=== PATIENT | female | born 1950 | race Caucasian/White ===

== ENCOUNTER → 2019-03-12 08:40 | Outpatient (CLI) | payer MEDICARE, OTHER, SELFPAY ==
[2019-03-12 10:33] LABS: Thyroid Stim Hormone (TSH) 2.35 uIU/mL (0.358-3.74)
== END ==
PROVIDERS: Referring Provider Dermatology; Visit Provider Dermatology
DX: L29.8 Other pruritus (principal); L21.8 Other seborrheic dermatitis; L20.89 Other atopic dermatitis; D23.71 Other benign neoplasm of skin of right lower limb, including hip
CPT/HCPCS: 36415; 84439; 84443

== ENCOUNTER 2021-05-06 11:18 | Day surgery (SDC) | payer MEDICARE, OTHER, SELFPAY ==
[2021-05-05 11:40] LABS: Hematocrit 39.8 % (37-47); Hemoglobin 12.9 g/dL (12.0-15.0); Mean Corp Hgb Conc 32.4 g/dL (32-36); Mean Corpuscular Hgb 31.7 pg (27.0-32.0); Mean Corpuscular Volume 97.8 fL (81-99); Mean Platelet Vol. 9.8 fl (6.2-12.0); Platelet Count 217 K/mm3 (150-450); RBC Distribution Width CV 13.2 % (11.6-14.6); RBC Distribution Width SD 47.2 fl (35.1-43.9); Red Blood Count 4.07 M/mm3 (4.2-5.4); White Blood Count 5.8 K/mm3 (4.4-11.0)
[2021-05-06] VITALS (7 sets, daily range): BP systolic 126–161; BP diastolic 62–69; PULSE 72–100; RESP 12–18; TEMP 36.1–37.1; O2SAT 97–100; BMI 30.3
[2021-05-06] MEDS: Lactated Ringers 1,000 ML 15 ML IV (12:12)
--- NOTE | 2021-05-06 12:49 | PCM.HP.BLA ---
History and Physical Date of Admission: 05/06/21 Surgical History and Physical Date: 05/06/2021 Name: CARMEN PIZARRO Age: 70 Date of : 1950 Carmen Pizarro, a 70 year old female 2 0 0 0 2 -- Carmen is here for Labiaplasty scheduled for 05/06/21. Consents reviewed and signed. MEDICATIONS HISTORY: Patient is also takin. potassium chloride ER 10 mEq tablet,extended release, One pill by mouth once a day ALLERGIES: Penicillins, Swelling-throat, Sulfa (Sulfonamide Antibiotics), Hives and/or rash, Inderal [place] and Migraine Infections - chicken pox, pneumonia Illnesses - HTN, GERD, micturition, hyperlipidemia, osteopenia Accidents - none Hospitalizations - see surgery Review of Systems: GENERAL - Denies fever, or chills SKIN - Denies skin changes EYES - Denies visual changes EARS - Denies difficulty hearing NOSE - Denies nasal congestion or bleeding MOUTH - Denies sore throat or difficulty swallowing NECK - Denies pain or swelling RESPIRATORY - Denies shortness of breath or wheezing CARDIOVASCULAR - Denies palpitations or chest pain GASTROINTESTINAL - Denies nausea, vomiting, diarrhea, constipation GENITOURINARY - Denies dysuria, frequency of urination, incontinence of urine MUSCULOSKELETAL - Denies joint or muscle pain NEUROLOGICAL - Denies localized numbness or weakness PSYCHIATRIC - Denies depression or anxiety ENDOCRINE - Denies heat or cold intolerance, weight loss or gain HEMATO-IMMUNOLOGIC - Denies excessive bleeding with cuts SOCIAL HISTORY: Alcohol Use - denies drinking Smoking - denies smoking Diet - balanced Diet Lifestyle - Exercise - none Seat Belt Use - always Employer - Retired Illicit Drug Use - denies use of street drugs Sexual Activity - Residence - owns a home Spouse-Sig Other Name - Joe Spouse-Sig Other Occupation - retired Children Name(s) - 2 children Control - hysterectomy FAMILY HISTORY: MENSTRUAL HISTORY: LMP Known?- Prior Hysterectomy PAST PREGNANCIES: Total Pregnancies - 2; Full Term Pregnancies - 2; Premature - 0; Abortions, Induced - 0; Abortions, Spontaneous - 0; Ectopics - 0; Multiple Births - 0; Living Children - 2 SURGICAL HISTORY: 1. vaginal hysterectomy 1981 ; - 2. L shoulder surgery 2006 ; - 3. sinus surgery 2014 ; - 4. b/l lasix eye surgery ; - 5. suspension of uterus 1977 ; - 6. L breast lumpectomy 1995 ; - 7. resection of the L ovary 1977 ; - 8. appendectomy 1977 ; - PHYSICAL EXAM BP- 158/92 Sitting, Right arm, regular cuff Weight- 156.47897 lbs Height- 60.00 inch BMI:[id number] CONSTITUTIONAL - NAD, well nourished, and well developed SKIN - No rash, lesions, or ulcers HEENT - Normocephalic, PERRLA, EOMI NECK - No nodes, no nuchal rigidity and thyroid normal size and texture LYMPH NODES - Palpation of lymph nodes in neck and groins within normal limits EXTREMITIES - No edema or calf tenderness NEUROLOGICAL - Cranial nerves II-XII grossly intact PSYCHIATRIC - A and O to time, place, person, mood and affect External Genital Vagina - Labia fused from introitus to just below urethra. Urethra visible Urethra/Urethral Meatus - non-tender ASSESSMENT/PLAN: 1. Fusion Of Labia Patient arrives as referral from Dr. Lira, who was seeing her for difficulty voiding. Noted on exam to have labial fusion by Dr. Lira Patient has had difficulty voiding, sits on toilet and dribbles with no heavy stream for about 3 months. Never noticed that she had any vaginal/vulvar issues Exam reveals labial fusion from introitus up to just below the urethra. Palpation of the vaginal canal cannot be performed with fusion For labioplasty 2. Encounter For Other Preprocedural Examination Patient with labial fusion with difficulty voiding. Scheduled for labioplasty Risk benefits alternatives discussed. All questions answered and consent was signed Discussed postoperative pain and wound recovery Follow-up 2 weeks postoperatively
--- NOTE | 2021-05-06 13:58 | PCM.DC ---
Discharge Instructions Diet Discharge Diet: No restrictions Activity Discharge Activity: Return to Normal Activity, May Drive and May Shower May resume sexual activity in: 4-6 weeks Weight Bearing Status: Weight bearing as tolerated Dressing / Incision Call your doctor if your incision/area has: Continuous Slow Oozing and Foul Smelling Discharge Call your doctor if you observe: Fever of 101 or Higher, Shortness of breath and Chest pain Follow Up Care Please Follow Up With: Eulogio Salcedo MD When: 2 weeks postoperatively Test Results: Test results from this visit will be discussed in further detail at your follow-up appointment, if applicable. Discharge Plan Admission Attending Provider: Eulogio Salcedo Primary Care Provider: Natalio Henry Discharge Orders/Prescriptions Prescriptions: No Action zinc 100 mg Tablet 100 mg PO DAILY RF: 0 potassium chloride 10 mEq capsule, extended release 30 meq PO DAILY RF: 0 cholecalciferol (vitamin D3) [Vitamin D3] 50 mcg (2,000 unit) Capsule 50 mcg PO DAILY RF: 0 Disposition Discharge Orders: Discharge Patient (Routine); Ordered 05/06/21 Ordered By: Dr. Eulogio Salcedo
--- NOTE | 2021-05-06 13:58 | PCM.OPRPT ---
Report of Operation Date of Procedure: 05/06/21 Pre-Operative Diagnosis: Labial fusion, urinary retention Post-Operative Diagnosis: Labial fusion, urinary retention Surgery/Procedure Performed:: Labioplasty Description of Surgical Findings:: Surgeon: Eulogio Salcedo MD Anesthesia: MAC EBL: 1 cc Urine output: Not measured IV fluids: 700 cc Complications: None Specimen: None Findings: Bilateral labial fusions at midline resolved with blunt dissection and lysis of adhesions with Bovie. Premarin cream placed over operative site Consent: Patient with labial fusion causing urinary retention in need of labioplasty. Patient understands the risk of the procedure include but are not limited to visceral or vascular injury, prolonged hospitalization, blood loss and need for transfusion, reoperation. Patient state understanding and wished to proceed. All questions were answered and consent was signed. Procedure: Patient was brought back to the OR where MAC anesthesia was found to be adequate. Patient was prepared and draped in a dorsal lithotomy position with yellowfin stirrups. Using blunt dissection the cephalad labial adhesions lysed. Weighted speculum placed on light tension for slow blunt dissection of further adhesions. Further adhesions were dissected with a Bovie bilateral labial, perineal, periclitoral for 15 minutes. Hemostasis was achieved with the Bovie. Premarin cream was placed over operative sites. Good hemostasis was noted. All counts were correct x2. Patient tolerated the procedure well and was brought to recovery in stable condition.
[2021-05-06] MEDS: Estrogens,Conj. 1 Tube 1 DOSE VAGINAL (14:00)
[2021-05-06] MEDS: Acetaminophen 500 MG Tablet 1000 MG PO (15:20)
== END 2021-05-06 23:59 | disposition home or self-care (01) ==
LOC: SDC 11:19 → AC 11:20
PROVIDERS: PCP Family Medicine; Referring Provider Obstetrics & Gynecology; Visit Provider Obstetrics & Gynecology
PROC: (CPT 56620; principal; 2021-05-06 12:45)
DX: R33.9 Retention of urine, unspecified (principal); J44.9 Chronic obstructive pulmonary disease, unspecified; Q52.5 Fusion of labia; G47.30 Sleep apnea, unspecified; I10 Essential (primary) hypertension; Z99.89 Dependence on other enabling machines and devices; Z97.3 Presence of spectacles and contact lenses
CPT/HCPCS: 56620; 36415; 85027; 86850; 86900; 86901; 87426; C9803; J7120; J2405